=== PATIENT | female | born 1965 | race Caucasian/White ===

== ENCOUNTER 2021-11-29 17:42 | Emergency (ER) | payer OTHER ==
[~2021-11-29] VITALS: Ht 162.6 cm; Wt 61.0 kg
[2021-11-29 18:24] LABS: BASOPHILS % 1.1 % (0.0-2.0); HEMOGLOBIN. 12.6 g/dL (12.0-16.0); LYMPHOCYTES % 43.7 % (20.0-50.0); MEAN CORPUSCULAR HEMOGLOBIN 27.2 pg (28.0-32.0); MEAN CORPUSCULAR VOLUME 82.1 fL (81.0-99.0); MEAN PLATELET VOLUME 7.7 fl (7.4-10.4); MONOCYTES % 8.5 % (2.0-8.0); NEUTROPHILS % 45.7 % (40.0-76.0); PLATELET 314 x1000/uL (130-400); RED BLOOD CELL COUNT 4.63 mill/uL (4.2-5.4); RED CELL DISTRIBUTION WIDTH 15.7 % (11.6-14.6)
[2021-11-29 18:27] LABS: CLARITY URINE CLEAR (CLEAR); COLOR URINE YELLOW (YELLOW); KETONES URINE NEGATIVE (NEGATIVE); LEUKOCYTE ESTERASE URINE NEGATIVE (NEGATIVE); NITRITE URINE NEGATIVE (NEGATIVE); OCCULT BLOOD URINE TRACE (NEGATIVE); PH URINE 7.5 (4.5-8.0); PROTEIN URINE NEGATIVE (NEGATIVE); SPECIFIC GRAVITY URINE 1.004 (1.005-1.030); UROBILINOGEN URINE 0.2 E.U./dL (0.2-1.0)
[2021-11-29 18:28] LABS: CHLORIDE 110 mEq/L (98-107)
[2021-11-29 18:33] LABS: ETHANOL BLOOD 125 mg/dL
[2021-11-29 18:38] LABS: *AMPHETAMINES SCREEN URINE NEGATIVE (NEGATIVE); *BARBITURATES SCREEN URINE NEGATIVE (NEGATIVE); *BENZODIAZEPINES SCREEN URINE NEGATIVE (NEGATIVE); *COCAINE SCREEN URINE NEGATIVE (NEGATIVE)
[2021-11-29 18:39] LABS: CANNABINOID URINE SCREEN PRESUMTIVE POSITIVE (NEGATIVE); METHADONE URINE SCREEN NEGATIVE (NEGATIVE); OPIATES URINE SCREEN NEGATIVE (NEGATIVE); PHENCYCLIDINE URINE SCREEN NEGATIVE (NEGATIVE)
[2021-11-29] MEDS ORDERED: TETANUS, DIPHTHERIA, PERTUSSIS VAC/PF 0.5ML (>10YR OLD) IM ONE (18:45)
[2021-11-29] MEDS ORDERED: QUETIAPINE FUMARATE 25MG TABLET PO SCH (21:45)
[2021-11-30] MEDS: OLANZAPINE 5MG TABLET ODT PO SCH (09:00)
[2021-11-30] MEDS ORDERED: ACETAMINOPHEN 325MG TABLET PO ONE (10:00)
[2021-11-30] MEDS ORDERED: ZOLPIDEM TARTRATE 5MG TABLET PO PRN (21:00)
[2021-12-01] MEDS ORDERED: ACETAMINOPHEN 500MG TABLET PO ONE (01:00)
[2021-12-01] MEDS: OLANZAPINE 5MG TABLET ODT PO SCH (09:00)
[2021-12-01 17:43] VITALS: BP 120/80
[2021-12-01] MEDS ORDERED: OLANZAPINE 5MG TABLET ODT PO SCH (21:00)
== END 2021-12-01 20:02 ==
LOC: ER 17:42
DX: S01.81XA Laceration without foreign body of other part of head, initial encounter (principal); R45.1 Restlessness and agitation; J45.909 Unspecified asthma, uncomplicated; Z98.890 Other specified postprocedural states; Y04.0XXA Assault by unarmed brawl or fight, initial encounter; Y93.89 Activity, other specified; Y92.89 Other specified places as the place of occurrence of the external cause; Y99.8 Other external cause status
CPT/HCPCS: 12011; 36415; 80053; 80305; 80320; 81003; 85025; 90471; 90715; 99285; A4217; G0480